=== PATIENT | female | born 1995 | race Caucasian/White ===

== ENCOUNTER → 2019-09-02 15:15 | Outpatient (CLI) | payer OTHER, SELFPAY ==
--- NOTE | 2019-09-02 | DI.MRI.S_ITS ---
PROCEDURE: MR TMJ WO CON INDICATIONS: Right TMJ pain. TECHNIQUE: Axial T1 spin echo, coronal and sagittal PD fast spin echo through the temporomandibular joints, in both the closed- and open-mouth positions. COMPARISON: None. FINDINGS: Image quality: Diagnostic, with note made of motion artifact. Right: Joint is normally aligned on closed and open-mouth positioning. Articular disk demonstrates normal location. There is a small amount of degenerative signal seen within the disc itself, as on series 6 images 5 and 6. No bony erosions or osteophytes. Left: Joint is normally aligned on closed and open-mouth positioning. Articular disk demonstrates normal location and morphology. No bony erosions or osteophytes. IMPRESSION: A mild degree of degenerative signal can be seen involving the right articular disc. Dictated by: Jasen Maria M.D. on 09/02/2019 at 15:54 Approved by: Jasen Maria M.D. on 09/02/2019 at 15:57
== END ==
PROVIDERS: PCP Physician Assistant Medical; Visit Provider Dentist Oral and Maxillofacial Surgery
DX: R68.84 Jaw pain (principal)
CPT/HCPCS: 70336